=== PATIENT | male | born 1950 | race Caucasian/White ===

== ENCOUNTER 2023-03-14 10:20 | Inpatient (IN) | payer OTHER ==
[2023-03-14 10:49] VITALS: BMI 24.2
[2023-03-14] MEDS ORDERED: ACETAMINOPHEN 325 MG TABLET (FP) PO PRN (11:42)
[2023-03-14] MEDS ORDERED: MELATONIN 5 MG TABLETS PO PRN (11:42)
[2023-03-14] MEDS ORDERED: LOPERAMIDE HCL 2 MG CAPSULE PO PRN (11:42)
[2023-03-14] MEDS ORDERED: P-EPHED 60MG/TRIPROLIDI 2.5MG TABLET PO PRN (11:42)
[2023-03-14] MEDS ORDERED: POLYETHYLENE GLYCOL (HEALTHYLAX) 3350 17 GM PACKET PO PRN (11:42)
[2023-03-14] MEDS ORDERED: NALOXONE HCL 0.4 MG/ML VIAL IM PRN (11:42)
[2023-03-14] MEDS ORDERED: MAG HYDROX/AL HYDROX/SIMETH 30 ML UNIT-DOSE CUP PO PRN (11:42)
[2023-03-14] MEDS ORDERED: DICYCLOMINE HCL 10 MG CAPSULE PO PRN (11:42)
[2023-03-14] MEDS ORDERED: NALOXONE HCL (KLOXXADO) 8 MG SPRAY NS PRN (11:42)
[2023-03-14] MEDS ORDERED: BISMUTH SUBSALICYLATE 262 MG/15 ML BTL PO PRN (11:42)
[2023-03-14] MEDS ORDERED: MAGNESIUM HYDROX 2400MG/30ML ORAL SUSPENSION 30 ML CUP PO PRN (11:42)
[2023-03-14] MEDS ORDERED: IBUPROFEN 400 MG TABLET (FP) PO PRN (11:42)
[2023-03-14] MEDS ORDERED: ONDANSETRON *ODT* 4 MG TABLET SL PRN (11:42)
[2023-03-14] MEDS ORDERED: guaiFENesin 600 MG TABLET.ER (FP) PO PRN (11:42)
[2023-03-14] MEDS ORDERED: NICOTINE POLACRILEX 2 MG GUM BUC PRN (11:42)
[2023-03-14] MEDS ORDERED: BENZOCAINE/MENTHOL (CHLORASEPTIC ) LOZENGE MM PRN (11:42)
[2023-03-14] MEDS ORDERED: IBUPROFEN 600 MG TABLET (FP) PO PRN (11:42)
[2023-03-14] MEDS ORDERED: BENZONATATE 200 MG CAPSULE PO PRN (11:42)
[2023-03-14] MEDS ORDERED: NICOTINE 10 MG CARTRIDGE (INHALER) IH PRN (11:42)
[2023-03-14] MEDS ORDERED: NICOTINE 7 MG/24 HOURS TOPICAL PATCH TD PRN (11:42)
[2023-03-14] MEDS ORDERED: METOPROLOL TARTRATE 25 MG TABLET (FP) PO ONE (11:51)
[2023-03-14] MEDS ORDERED: METOPROLOL TARTRATE 25 MG TABLET (FP) ONE (13:25)
[2023-03-14] MEDS: ASPIRIN 81 MG CHEWABLE TABLETS PO SCH (13:34)
[2023-03-14] MEDS: PANTOPRAZOLE 40 MG TABLET PO SCH (13:53)
[2023-03-14] MEDS: THIAMINE HCL 100 MG TABLET (FP) PO SCH (21:59)
[2023-03-14] MEDS: FAMOTIDINE 20 MG TABLET PO SCH (21:59)
[2023-03-14] MEDS: CARVEDILOL 6.25 MG TABLET (FP) PO SCH (21:59)
[2023-03-14] MEDS ORDERED: ENALAPRIL MALEATE 2.5 MG TABLET PO SCH (22:00)
[2023-03-14] MEDS: ENALAPRIL MALEATE 5 MG TABLET PO SCH (23:14)
[2023-03-15 09:45] LABS: HEMATOCRIT 43.1 % (35.4-49); HEMOGLOBIN 14.3 GM/dL (11.7-16.9); MCHC 33.2 g/dl (32.0-35.9); MEAN CELL VOLUME 93.2 fl (80-96); PLATELET COUNT 171 10^3/uL (134-434); RBC 4.62 M/mm3 (4.00-5.60); RDW 21.5 % (11.9-15.9); WHITE BLOOD COUNT 7.7 K/mm3 (4.0-10.0)
[2023-03-15 09:49] LABS: ALBUMIN 4.1 g/dl (3.4-5.0); BLOOD UREA NITROGEN 11.5 mg/dL (7-18); CALCIUM 8.6 mg/dL (8.5-10.1)
[2023-03-15 09:53] LABS: BILIRUBIN,TOTAL 1.1 mg/dL (0.2-1); CREATININE 0.9 mg/dL (0.55-1.3)
[2023-03-15 09:55] LABS: TOT PROT 8.8 g/dl (6.4-8.2)
[2023-03-15] MEDS ORDERED: ENALAPRIL MALEATE 5 MG TABLET PO SCH (10:00)
[2023-03-15] MEDS: amLODIPine BESYLATE 5 MG TABLET (FP) PO SCH (10:05)
[2023-03-15] MEDS: ENALAPRIL MALEATE 5 MG TABLET PO SCH ×2 (10:05→22:11)
[2023-03-15] MEDS: PRENATAL VITAMINS W/ FOLIC ACID TABLET (FP) PO SCH (10:05)
[2023-03-15] MEDS: ASPIRIN 81 MG CHEWABLE TABLETS PO SCH (10:05)
[2023-03-15] MEDS: PANTOPRAZOLE 40 MG TABLET PO SCH (10:05)
[2023-03-15] MEDS: CARVEDILOL 6.25 MG TABLET (FP) PO SCH ×2 (10:05→22:09)
[2023-03-15] MEDS: TIMOLOL MALEATE 0.5% GFS OPHTHALMIC SOLN 5 ML BOTTLE OU SCH ×2 (10:07→17:57)
[2023-03-15] MEDS ORDERED: PNEUMOC 20-VAL CONJ-DIP CRM/PF 0.5 ML SYRINGE IM ONE (12:00)
[2023-03-15] MEDS: FAMOTIDINE 20 MG TABLET PO SCH (22:09)
[2023-03-15] MEDS: THIAMINE HCL 100 MG TABLET (FP) PO SCH (22:09)
[2023-03-16 06:38] VITALS: PULSE 71; RESP 16
[2023-03-16 09:52] VITALS: BP 148/69; TEMP 98.1
[2023-03-16] MEDS: CARVEDILOL 6.25 MG TABLET (FP) PO SCH (10:10)
[2023-03-16] MEDS: PRENATAL VITAMINS W/ FOLIC ACID TABLET (FP) PO SCH (10:10)
[2023-03-16] MEDS: ASPIRIN 81 MG CHEWABLE TABLETS PO SCH (10:10)
[2023-03-16] MEDS: amLODIPine BESYLATE 5 MG TABLET (FP) PO SCH (10:10)
[2023-03-16] MEDS: PANTOPRAZOLE 40 MG TABLET PO SCH (10:10)
[2023-03-16] MEDS: ENALAPRIL MALEATE 5 MG TABLET PO SCH (10:11)
[2023-03-16] MEDS: TIMOLOL MALEATE 0.5% GFS OPHTHALMIC SOLN 5 ML BOTTLE OU SCH (10:11)
== END 2023-03-16 12:00 | disposition home or self-care (01) | DRG 897 ==
LOC: YASAS 10:20 → Y3N 13:01 → Y6N 13:09
PROVIDERS: ADMIT Allergy & Immunology; ATTEND Surgery
PROC: HZ2ZZZZ Detoxification Services for Substance Abuse Treatment (ICD-10-PCS; principal; 2023-03-14)
DX: F10.230 Alcohol dependence with withdrawal, uncomplicated (principal); F10.220 Alcohol dependence with intoxication, uncomplicated; F17.213 Nicotine dependence, cigarettes, with withdrawal; H40.9 Unspecified glaucoma; I10 Essential (primary) hypertension; K21.9 Gastro-esophageal reflux disease without esophagitis; Z99.89 Dependence on other enabling machines and devices; Z88.0 Allergy status to penicillin; Z91.013 Allergy to seafood
CPT/HCPCS: 36415; 80053; 85027; 86593; 86780; 87635; 90677